=== PATIENT | male | born 1940 | race Caucasian/White ===

== ENCOUNTER 2022-10-24 10:13 | Inpatient (IN) | payer MEDICARE ==
[~2022-10-24] VITALS: Ht 170.2 cm; Wt 97.6 kg
[2022-10-24] VITALS (8 sets, daily range): BP systolic 100–135; BP diastolic 53–80
[~2022-10-24 10:13] MED LIST: COREG25 MG PO; COUMADIN5 MG PO; LASIX20 MG PO; LISINOPRIL20 MG PO; MECLIZINE HCL25 MG PO; SIMVASTATIN40 MG PO; TERAZOSIN HCL5 MG PO; TRANSDERM-SCOP1 EA TD
[2022-10-24] MEDS ORDERED: ALLOPURINOL300 MG PO (10:54)
[2022-10-24] MEDS ORDERED: DIGOXIN250 MCG PO (10:54)
[2022-10-24] MEDS ORDERED: TERAZOSIN HCL2 MG PO (10:56)
[2022-10-24] MEDS ORDERED: SPIRONOLACTONE25 MG PO (10:56)
[2022-10-24] MEDS ORDERED: WARFARIN SODIU2.5 MG PO (10:58)
--- NOTE | 2022-10-24 14:00 | NUR ---
PATIENT ARRIVED TO THE CCU UNIT ROOM 129. PATIENT ABLE TO STAND AND TRANSFER. PATIENT TO BED WITH HIS DAUGHTER MADDY AT THE BEDSIDE. ALL QUESTIONS ANSWERED. PATIENT AND HIS DAUGHTER UPDATED ON PLAN OF CARE.
[2022-10-24] MEDS ORDERED: FUROSEMIDE80 MG PO (15:12)
--- NOTE | 2022-10-24 16:30 | NUR ---
PATIENTS ASSESSMENT COMPLETED. PER REPORT PATIENT HAD MULTIPLE MAROON BOWEL MOVEMNTS IN THE ED AND URINATED ONCE IN THE ER. PATIENT HAS HAD 2 BOWEL MOVEMENTS SINCE BEING IN CCU. PATIENT VITALS REMAIN STABLE. PATIENT CONTINUES TO DENY DIZZINESS. LABS WILL BE RECHECKED AT THIS TIME. PATIENT CONTINUES TO DENY PAIN.
--- NOTE | 2022-10-24 16:35 | NUR ---
PATIENT LABS DRAWN WITH SOME DIFFICULTY. PATIENT WAS UP TO THE CAMMODE AND TOLERATED WELL. NO DIZZINESS. WILL CONTINUE TO CLOSELY MONITOR.
--- NOTE | 2022-10-24 18:39 | NUR ---
PATIENT 1 HOUR NEB IS FINISHED INFUSING. RT AT THE BEDSIDE. PATIENTS HR HAS REMAINED 60-80'S. PATIENT HAS SLEPT THROUGH THE 1 HOUR NEB. NO OTHER NEEDS AT THIS TIME.
--- NOTE | 2022-10-24 19:49 | NUR ---
CALLED AND SPOKE WITH MARIELENA CHAVEZ. PATIENT HAD NOT VOIDED SINCE ER. BLADDER SCANNED FOR 175. PATIENT INITIALLY DENIED THE NEED TO URINATE. PATIENT THEN UP TO THE CAMMODE AND VOIDED AT THIS TIME. NEW ORDERS FOR 2 UNITS PRBC ON HOLD. NEW ORDER FOR CMP TO FOLLOW POTASSIUM LEVELS. PATIENTS FAMILY AT THE BEDSIDE. PATIENT REMAINS NPO. PATIENTS VITALS STABLE.
--- NOTE | 2022-10-24 20:37 | NUR ---
CONTACTED DR. PEGUERO REGARDING K OF 6.8. READBACK ORDER AND DR. PEGUERO CONFIRMED SHE WILL PL[email or web address]
--- NOTE | 2022-10-24 21:11 | NUR ---
CONTACTED HOUSE SUP REGARDING CALCIUM GLUCONATE. SHE WILL MAKE THE DRIP AND BRING IT UP.
[2022-10-25] VITALS (16 sets, daily range): BP systolic 90–134; BP diastolic 50–105
--- NOTE | 2022-10-25 01:29 | NUR ---
PATIENT HAS A REPEAT K OF 6.1. CONTACTED DR. PEGUERO AND WAS GIVEN ORDERS. [facility] REPEAT AT 0600
--- NOTE | 2022-10-25 04:44 | NUR ---
PATIENT IS RESTING IN BED. HE HAS HAD 2 BLOODY BM'S.
--- NOTE | 2022-10-25 07:30 | NUR ---
PATIENT SHIFT REPORT RECIEVED FROM RURAL SERVICE ENGINEER RN. PATIENT IS RESTING IN THE BED AT THIS TIME. PER REPORT PATIENT HAD 4 BLOODY BOWEL MOVEMENTS OVERNOTIGHT. PATIENT HAS EUFEMIA LLIHT AND CALLS APPROPRIATELY.
--- NOTE | 2022-10-25 08:30 | NUR ---
Spoke with pt and he is very pleasant. Pt states he lives in a house with his daughter. 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 He has 3 great grandchildren living in the home ranging from 21/2 to 18. He assist with their care and is upnights with the youngest as his daughter works. He ses a walking stick or a cane. He has other DME available from his late . He denies financial concerns. He sees Dr. Tiwari for cardiology. Pt does not have a pcp and will accept a Dr. from any clinic. He does not want a female Dr. I will contact the physician clinic as they are the only clinic accepting pts at this time in [facility]. Pt plans on dc to home with daughter and great grandchildren. He denies need. I will have a scope today.
--- NOTE | 2022-10-25 09:10 | NUR ---
PATIENT ASSESSMENT COMPLETED. PATIENTS BREATH SOUNDS CLEAR ON RA. PATIENT DENIES SOB. NO COUGHING NOTED. PATIENT DENIESABD PAIN. ACTIVE BOWEL TONES NOTED. NO TENDERNESS. PATIENT CONTINUES TO HAVE MAROON COLORED BOWEL MOVEMENTS. PATIENTS HR IS IRREGULAR ON THE HEART MONITOR. MD PEGUERO AT THE BEDSIDE TO SEE PATIENT AND HOME CARDIA MEDICATIONS WILL BE ORDERED. PATIENT HAS MAGNESIUM INFUSING FOR MAG LEVEL OF 1 ON LABS THIS AM. PATIENT IS ALERT AND TALKATIVE. HE IS VERY PLEASANT AND FOLLOWS DIRECTIONS. PATIENT HAS A CLEAR LIQUID TRAY AT THE BEDSIDE. PATIENT IS NOW AT THE BEDSIDE. WILL UPDATE ON PLAN OF CARE. CALL LIGHT IN REACH.
--- NOTE | 2022-10-25 10:00 | NUR ---
Contacted Taras at the [facility]ician [facility]. I will scan the chart to her. She states she will get a DrPhil assigned today and I let her know, he wants a male PCP.
--- NOTE | 2022-10-25 10:08 | NUR ---
PATIENTS DAUGHTER AT THE [facility]. UPDATED ON PLAN OF CARE.
--- NOTE | 2022-10-25 10:30 | NUR ---
PATIENT CONCERNED ABOUT HOME MEDICATION FOR HIS HEART. PATIENT STARTED ON DIGOXIN AND WILL RECIEVE PO COREG THIS AFTERNOON. PATIENT IS STARTED ON BOWEL PREP AND MD WANTS TO ENSURE PATIENT TOLERATES PREP WELL PRIOR TO RECIEVEING COREG. PATIENTS ELLIOTT WAS UPDATED ON PLAN OF CARE. WILL CONTINUE TO CLOSELY MONITOR. BOWEL PREP PROVIDED TO PATIENT. PATIENT DENIES ANY OTHER NEEDS AT THIS TIME. CALL LIGHT IN REACH.
--- NOTE | 2022-10-25 11:30 | NUR ---
STUDENT RN AND THIS RN IN TO ASSESS PATIENT. PATIENT SITTING AT THE EDGE OF THE BED. PATIENT ASSESSMENT REMAINS UNCHANGED. PATIENT AND STUDENT EMILIANO VISITING AT THIS TIME. CALL LIGHT IN REACH.
--- NOTE | 2022-10-25 13:03 | NUR ---
PATIENT RESTING IN BED ON HIS SIDE. VITALS STABLE. PATIENT CONTINUES TO WAKE UP AND WORK ON BOWEL PREP THIS AFTERNOON.
--- NOTE | 2022-10-25 13:23 | NUR ---
THIS RN IN TO CHECK ON PATIENT AND CLEAN UP CAMMODE. PATIENT RESTING IN BED AND OPENED HIS EYES. PATIENT IS TOERLATING PREP WELL. PATIENTS STOOL IN NOW A HUFF COLOR WITH OCC. SMALL CLOTS NOTED MIXED INTO THE STOOL. PATIENT DENIES ANY OTHER NEEDS AT THIS TIME.
--- NOTE | 2022-10-25 15:00 | NUR ---
PATIENTS FAMILY IN VISITING WITH PATIENT. PATIENT SITTING UP A TTHE EDGE OF THE BED. PATIENT CONTINUES TO DENY DIZZINESS. VITALS STABLE. PATIENTS STOOL CONTINUES TO BE HUFF IN COLOR WITH OCC. SMALL CLOTS NOTED. STOOL IS LIQUID. PATIENT IS STILL WORKING ON DRINKING BOWEL PREP. CALL LIGHT IN REACH.
--- NOTE | 2022-10-25 15:24 | CONS ---
[facility] [address] [place], [place] [address] Signed DATE OF CONSULTATION: 10/24/2022 CONSULTING PHYSICIAN: Shiv Garcia MD. REQUESTING PHYSICIAN: Dr. De Souza. PROBLEM: Hematochezia. HISTORY OF PRESENT ILLNESS: This 82-year-old white man was evaluated through the emergency room for significant hematochezia. Notably he was not particularly anemic with hematocrit of 41. Concurrently, he was noted to have significant hyperkalemia with a potassium greater than 6. The patient has had this bleeding only for today. He does not have routine rectal bleeding. He had no associated hematemesis. He denies any significant abdominal pain with this. Note that he underwent colonoscopy more than 20 years ago in [place]. He has no family history of colon cancer, but is known to have diverticulosis. It is unclear if he has had polyps in the past, he is uncertain. Given his significant hyperkalemia, he has been monitored in the intensive care unit. He has had no adverse arrhythmia or other manifestation of his hyperkalemia. He was treated with Kayexalate, enemas as well as Lasix intravenously administered. He is somewhat thirsty and would like something to drink. SOCIAL HISTORY: He has been for a few years. He has a daughter and several grandchildren living in his home. He lives in [place] off [address] [place] [address] (behind the [facility]). REVIEW OF SYSTEMS: He denies any shortness of breath or chest pain. He has had no dysphagia or dysuria. He denies any hematemesis, but does have blood per rectum. Additionally, the patient is chronically anticoagulated with Coumadin related to atrial fibrillation. He is followed by Dr. Redd, in [place]. The patient has been on Lasix 3 times a week, lisinopril twice daily, and spironolactone, which may contribute to his current problem hyperkalemia. He is considered to have low ejection fraction, CHF. PAST MEDICAL HISTORY: Noted for hypertension, BPH, congestive heart failure with dilated cardiomyopathy, diverticulosis, atrial fibrillation, peripheral arterial disease. Electronically Signed By: SHIV GARCIA MD 10/25/22 1524 PATIENT NAME: TEE GAMEZ CONSULTATION DATE OF : 42 REPORT #: [id number] PHYSICIAN: SHIV GARCIA MD PCP: OTHER PCP REPORT IS CONFIDENTIAL AND NOT TO BE RELEASED WITHOUT AUTHORIZATION [facility] [address] [place], [place] [address] Signed PAST SURGICAL HISTORY: He has had cholecystectomy, tonsillectomy, and a pacemaker with defibrillator implantation. ALLERGIES: He has no known drug allergies. PHYSICAL EXAMINATION: GENERAL: A pleasant white man, who looks to be in no distress at this time. VITAL SIGNS: Height is 5 feet 7 inches, weight is 98.5 kg with a BMI of 34. Temperature is 97, pulse is 79, irregularly irregular, blood pressure 119/67, O2 saturation 99% on room air. HEENT: Trachea is midline. CHEST: Shows normal respiratory excursion without wheeze overtly, nor tachypnea. ABDOMEN: Somewhat obese, but soft throughout. There is no sign of ascites. There is no focal mass or tenderness. EXTREMITIES: Show no clubbing, cyanosis, or edema at this time. LABORATORY DATA: Most recent lab studies show white count of 13.8, hematocrit 39.3, platelets 271,000. Coag studies showed an INR of 3.88 and on admission now 1.31 after Kcentra and vitamin K. His electrolytes continue to show elevated potassium at 6.8 at 20:10, initial potassium 6.6. Creatinine is 1.67, initially 1.41. Liver enzymes are normal. Digoxin level was 1.5. Serology showed no evidence of COVID disease or other viral illness. ASSESSMENT: The patient has had hematochezia, but without significant drop in his hemoglobin or hematocrit. His admission hematocrit was 41.6, now 39.3. Colonoscopy should be undertaken once medically optimized. Right now, his hyperkalemia is problematic and is being addressed by Dr. De Souza, with IV fluids, Lasix, and so on. I think he could have clear liquids (water etc.) for the time being, as he is rather thirsty. We will make him n.p.o. in the morning. Most optimally a colonoscopy would be undertaken at the time after stabilization. His current regimen with Kayexalate, enemas, and other interventions may obviate the need for formal bowel prep, but generally speaking it is most appropriate depending on the level of fecal discharge from his apparent lower gastrointestinal bleeding. We will revisit that issue tomorrow morning once more stability of electrolytes has been accomplished. Electronically Signed By: SHIV GARCIA MD 10/25/22 1524 PATIENT NAME: TEE GAMEZ CONSULTATION DATE OF : 42 REPORT #: [id number] PHYSICIAN: SHIV GARCIA MD PCP: OTHER PCP REPORT IS CONFIDENTIAL AND NOT TO BE RELEASED WITHOUT AUTHORIZATION [facility] [address] [place] [address] Signed MD LAUREN Peñaloza/MODL /[id number] cc: Isaak Tolliver MD Copies: JO DE SOUZA MD ~ Electronically Signed By: SHIV GARCIA MD 10/25/22 1524 PATIENT NAME: TEE GAMEZ CONSULTATION DATE OF : 42 REPORT #: [id number] PHYSICIAN: SHIV GARCIA MD PCP: OTHER PCP REPORT IS CONFIDENTIAL AND NOT TO BE RELEASED WITHOUT AUTHORIZATION
--- NOTE | 2022-10-25 16:30 | NUR ---
PATIENT UP TO THE CAMMODE. PATIENTS FAMILY HAS BEEN IN VISITING. VITAL SIGNS REMAIN STABLE. PATIENT DENIES ANY NEEDS AT THIS TIME. UPDATED PATIENTS FAMILY ON PLAN OF CARE.
--- NOTE | 2022-10-25 18:33 | NUR ---
PATIENT CAMMODE EMPTIED AND CLEANED. PATIENT MEDICATION GIVEN. PATIENT IS DRINKING THE LAST CUP OF HIS BOWEL PREP. PATIENT IS TOLERATING WELL. STOOL CONTINUES TO BE HUFF LIQUID WITH OCC. SMALL CLOTS IN STOOL. PATIENT DENIES ABD PAIN AND DIZZINESS. CALL LIGHT IN REACH. PATIENT DENIES ANY OTHER NEEDS AT THIS TIME. PATIENT HAS BEEN UP AND DOWN TO USE CAMMODE THROUGHTOUT THE DAY. PER MD PEGUERO ONCE PATIENT IS SLOWING DOWN ON GETTING UP SCD'S NEED TO BE PLACED ON PATIENT. PATIENT NPO AT MIDNIGHT.
[2022-10-26] VITALS (10 sets, daily range): BP systolic 99–143; BP diastolic 59–88
--- NOTE | 2022-10-26 05:35 | NUR ---
PATIENT IS RESTING IN BED.
--- NOTE | 2022-10-26 06:11 | NUR ---
CONTACTED DR. PEGUERO REGARDIN MG OF 1.6. NO FURTHER ORDERS GIVEN.
--- NOTE | 2022-10-26 07:31 | EKG ---
[facility] [address] [facility] [place], [place] [address] Signed Atrial fibrillation Nonspecific intraventricular block Abnormal ECG No previous ECGs available Confirmed by JO PEGUERO MD ([id number]) on 10/26/2022 7:30:50 AM Electronically Signed By: JO PEGUERO MD 10/26/22 0731 PATIENT NAME: TEE GAMEZ Electrocardiogram DATE OF : 42 PHYSICIAN: JO PEGUERO MD REPORT #: [id number] REPORT IS CONFIDENTIAL AND NOT TO BE RELEASED WITHOUT AUTHORIZATION
--- NOTE | 2022-10-26 07:45 | NUR ---
IN TO SEE PT AND DO ASSESSMENT. PT IS AWAKE IN BED WATCHING TV, CHEERFUL AND TALKATIVE. DENIES ANY PAIN/NAUSEA/SOB OR WEAKNESS. HR 80'S. LUNGS CLEAR. ALERT AND ORIENTED, DISCUSSED PLAN FOR THE DAY INCLUDING SCOPE WITH DR GARCIA AND NEED FOR NPO. PT AGREEABLE, NO NEEDS AT THIS TIME.
--- NOTE | 2022-10-26 08:10 | NUR ---
CALL FROM DR GARCIA TO CONFIRM PLAN FOR SCOPE THIS AM AT 1000.
--- NOTE | 2022-10-26 08:57 | NUR ---
DR PEGUERO IN TO ROUND ON PT
--- NOTE | 2022-10-26 09:44 | NUR ---
PT LEFT TO OR WITH PACU NURSES.
--- NOTE | 2022-10-26 11:01 | NUR ---
10/26/22 [address] [address]: PATIENT AWAKENED WITH VOICE. DENIES PAIN. FLIGHT TEST DATA ACQUISITION TECHNICIAN AT BEDSIDE. 1048: PATIENT TRANSFERRED BACK TO CCU ROOM 129. PATIENT TOLERATED TRANSFER WELL. PATIENT WALKED FROM STRETCHER TO CCU BED. REPORT GIVEN CCU RN.
--- NOTE | 2022-10-26 11:39 | NUR ---
MED REC COMPLETE
--- NOTE | 2022-10-26 12:41 | NUR ---
PT SITTING UP IN BED, TALKATIVE, NO C/O OF THIS TIME.
--- NOTE | 2022-10-26 16:20 | NUR ---
PT ARRIVED TO UNIT FROM CCU VIA CHAIR. PT IS A/O, RESPIRATIONS EVEN AND REGULAR. PT DENIES NEEDS/COMPLAINTS ATT. CALL LIGHT WITHIN REACH.
--- NOTE | 2022-10-26 17:51 | NUR ---
PT VS AND I/O'S COMPLETED. PT IS LAYING DOWN IN BED. A/O, RESPIRATIONS EVEN AND REGULAR. CALL LIGHT WITHIN REACH.
--- NOTE | 2022-10-26 19:23 | NUR ---
shift report received from dayshift stephane shah at bedside, pt awake and resting in bed. on ra, rr even and unlabored. no distress noted. call light in reach.
--- NOTE | 2022-10-26 21:15 | NUR ---
ROUNDED ON pt, pt AWAKE AND RESTING IN BED WATCHING TV. DENEIS NEEDS OR CONCERNS. CALL LIGHT IN REACH. ON RA, RR EVEN AND UNLABORED.
--- NOTE | 2022-10-26 22:19 | NUR ---
ASSESSMENT COMPLETE, SCHEDULED MEDS GIVEN-VS REMAINS WNL. pt DENEIS NAUSEA AND PAIN. pt VERY INTERACTIVE WITH STAFF AND POLITE. IV SITES X2 WNL. EMPTIED URINAL AND CALL LIGHT IN REACH. pt INDEPENDENT IN ROOM, STEADY ON FEET. NO NEEDS OR CONCERNS VERBALIZED, FRESH WATER PROVIDED.
--- NOTE | 2022-10-27 00:06 | NUR ---
pt RESTING IN BED WITH EYES CLOSED, ON RA. RR EVEN AND UNLABORED. NO DISTRESS NOTED.
[2022-10-27 02:05] VITALS: BP 120/59
--- NOTE | 2022-10-27 02:11 | NUR ---
vss, pt awoke to voice. no acute changes to assessment. tele remains in place, afib. call light in reach.
--- NOTE | 2022-10-27 05:37 | NUR ---
REQUESTED AND RECEIVED CUP COFFEE. NO OTHER NEEDS. PT SITTING ON EDGE OF BED.
[2022-10-27 05:45] VITALS: BP 125/68
--- NOTE | 2022-10-27 05:50 | NUR ---
chair post machine operator in room collecting vs, no needs or concerns verbalized. call light in reach. pt remains on ra, rr even and unlabored.
--- NOTE | 2022-10-27 05:57 | NUR ---
urinal emptied, 600mls output. daughter tammi called and asked for update, questions answered. no additional needs or concerns. call light in reach.
--- NOTE | 2022-10-27 07:40 | NUR ---
RECEIVED REPORT FROM NOC NURSE. PT IS A/O, RESPIRATIONS EVEN AND REGULAR. DENIES NEEDS/COMPLAINTS ATT.
[2022-10-27 08:49] VITALS: BP 163/100
--- NOTE | 2022-10-27 08:58 | NUR ---
PT ASSESSMENT AND MEDICATION ADMINISTRATION COMPLETED. PT REQUESTED ONE IV TO BE REMOVED. WILLING TO KEEP ONE FOR IV MAG REPLACEMENT. BP ELEVATED 163/100, REFUSES RECHECK. STATES HE IS VERY WORKED UP ABOUT WAITING TO BE DISCHARGED. RECEIVED BP MEDICATIONS. CALL LIGHT WITHIN REACH.
[2022-10-27 10:34] VITALS: BP 152/99
--- NOTE | 2022-10-27 13:02 | OR ---
[facility] [address] [place], [place] [address] Signed DATE OF OPERATION: 10/26/2022 SURGEON: Shiv Garcia MD PREOPERATIVE DIAGNOSES: 1. Recent hematochezia and coagulopathy (warfarin related). 2. Multiple medical problems including atrial fibrillation, congestive heart failure and cardiomyopathy. POSTOPERATIVE DIAGNOSES: 1. Extensive diverticulosis of sigmoid and more proximal colon. No evidence of active blood or bleeding. 2. Polyp at rectosigmoid colon (excised). 3. Hiatal hernia and possible mild gastritis. PROCEDURES: 1. Total colonoscopy to cecum with cold snare polypectomy x1. 2. Upper endoscopy with biopsy of proximal stomach. ANESTHESIA: Aris Kowalski CRNA INDICATIONS: This 82-year-old white man was admitted by Dr. De Souza on October 24, 2022 with significant hematochezia and hematocrit noted to be 27. He has been chronically anticoagulated with Coumadin for chronic atrial fibrillation. He has numerous cardiovascular comorbidities. He has been reversed on his anticoagulation and at this point, hematochezia has ceased. He has undergone a bowel prep yesterday. He is admitted to undergo colonoscopy to better characterize the source of his hematochezia and if no findings entirely accounting for the process, upper endoscopy as well. He understands the risks of bleeding, infection, and perforation and wished to proceed. FINDINGS: Colonoscopy showed a perfectly prepped colon. Complete colonoscopy was undertaken to the cecum without question. There were numerous large diverticula of the sigmoid and left colon and scattered diverticula more proximally. There was an adenomatous polyp at the rectosigmoid which was excised with cold snare technique. On the basis of those findings without signs of active bleeding, he did undergo upper endoscopy. This showed only a hiatal hernia and mild proximal gastritis but no sign of Electronically Signed By: SHIV GARCIA MD 10/27/22 1302 PATIENT NAME: TEE GAMEZ OPERATIVE REPORT DATE OF : 42 REPORT #: [id number] PHYSICIAN: SHIV GARCIA MD PCP: OTHER PCP REPORT IS CONFIDENTIAL AND NOT TO BE RELEASED WITHOUT AUTHORIZATION [facility] [address] [place], [place] [address] Signed ulcer or neoplasm. DESCRIPTION OF PROCEDURE: The patient was brought to the endoscopy suite and placed in the lateral decubitus position and given intravenous sedation with propofol infusional technique. Digital rectal examination was performed which was normal. An Olympus video colonoscope was passed in the rectum and manipulated throughout the colon noting numerous diverticula of the sigmoid and more proximally as well. The scope was ultimately advanced to the cecum. The ileocecal valve and appendiceal orifice were noted to be normal. There was no sign of blood in the GI tract. No sign of inflammation, ischemic colitis, or other finding that would account for hematochezia, only diverticulosis. The scope was withdrawn from the cecum and examination throughout showed diverticulitis noted and at the rectosigmoid, an adenomatous polyp which was reasonably small. This was excised with cold snare polypectomy technique. The rectum was otherwise normal. On that basis, upper endoscopy was considered appropriate. The Olympus video upper endoscope was passed into the hypopharynx after placement of a bite block. Vocal cords appeared normal. Scope was advanced to the esophagus, throughout its length it was normal. Scope was advanced to the stomach, which was insufflated with air. There was no sign of blood or other abnormality at that point. Rugal folds were normal. Antrum was normal as was the pylorus. The scope was passed through the pylorus into the duodenum, which was also normal. Scope was withdrawn and retroflexed view undertaken showing proximal gastritis but no sign of ulceration or any sign of recent bleeding. Hiatal hernia was also noted. Biopsies were obtained in the proximal stomach for both JESSIE and pathologic testing. The scope was then withdrawn to the esophagus. The remaining esophagus appeared normal. The patient was taken to the recovery room in good condition. CONCLUDING DIAGNOSIS: Most likely GI bleeding related to diverticulosis in the setting of anticoagulation. PLAN: He will return to the care of Dr. De Souza and I would recommend advancement of his diet. He may benefit from PPI medication, particularly if he will be returning to anticoagulation regimen. Shiv Garcia MD Electronically Signed By: SHIV GARCIA MD 10/27/22 1302 PATIENT NAME: TEE GAMEZ OPERATIVE REPORT DATE OF : 42 REPORT #: [id number] PHYSICIAN: SHIV GARCIA MD PCP: OTHER PCP REPORT IS CONFIDENTIAL AND NOT TO BE RELEASED WITHOUT AUTHORIZATION [facility] [address] [facility] [place], [place] [address] Signed /MODL /[id number] cc: Dr. Tramaine De Souza MD Copies: JO DE SOUZA MD ~ Electronically Signed By: SHIV GARCIA MD 10/27/22 1302 PATIENT NAME: TEE GAMEZ OPERATIVE REPORT DATE OF : 42 REPORT #: [id number] PHYSICIAN: SHIV GARCIA MD PCP: OTHER PCP REPORT IS CONFIDENTIAL AND NOT TO BE RELEASED WITHOUT AUTHORIZATION
== END 2022-10-27 11:00 | disposition home or self-care (01) | DRG 378 ==
LOC: ED 10:13 → CCU 12:42 → MS 10-26 16:21
PROVIDERS: Surgery; ADMIT Internal Medicine; ATTEND Internal Medicine
PROC: 30283B1 Transfusion of Nonautologous 4-Factor Prothrombin Complex Concentrate into Vein, Percutaneous Approach (ICD-10-PCS; principal; 2022-10-24)
PROC: 0DB68ZX Excision of Stomach, Via Natural or Artificial Opening Endoscopic, Diagnostic (ICD-10-PCS; 2022-10-26)
PROC: 0DBN8ZX Excision of Sigmoid Colon, Via Natural or Artificial Opening Endoscopic, Diagnostic (ICD-10-PCS; 2022-10-26 09:51)
DX: K57.31 Diverticulosis of large intestine without perforation or abscess with bleeding (principal); D62 Acute posthemorrhagic anemia; I42.0 Dilated cardiomyopathy; I48.20 Chronic atrial fibrillation, unspecified; D68.9 Coagulation defect, unspecified; Z20.822 Contact with and (suspected) exposure to COVID-19; K29.50 Unspecified chronic gastritis without bleeding; K44.9 Diaphragmatic hernia without obstruction or gangrene; I10 Essential (primary) hypertension; E87.5 Hyperkalemia; E83.42 Hypomagnesemia; I11.0 Hypertensive heart disease with heart failure; I50.9 Heart failure, unspecified; N40.0 Benign prostatic hyperplasia without lower urinary tract symptoms; I73.9 Peripheral vascular disease, unspecified; Z90.49 Acquired absence of other specified parts of digestive tract; Z90.89 Acquired absence of other organs; Z95.810 Presence of automatic (implantable) cardiac defibrillator; Z79.01 Long term (current) use of anticoagulants; Z79.899 Other long term (current) drug therapy
CPT/HCPCS: 00813; 36415; 80048; 80053; 80162; 83735; 85025; 85610; 85730; 86850; 86900; 86901; 87502; 93005; 93010; 94644; 96365; 96375; 99285-25; C9113; C9803; J1940; J2405; J3430; J3475; J7121; J7168; U0003

== ENCOUNTER 2023-09-30 14:55 | Emergency (ER) | payer MEDICARE ==
[~2023-09-30] VITALS: Ht 170.2 cm; Wt 100.5 kg
[~2023-09-30 14:55] MED LIST changes: +ALLOPURINOL300 MG PO; +DIGOXIN250 MCG PO; +FUROSEMIDE80 MG PO; +SPIRONOLACTONE25 MG PO; +TERAZOSIN HCL2 MG PO; +WARFARIN SODIU2.5 MG PO
[2023-09-30 15:15] LABS: BASOPHILS 0.8 % (0-2); EOSINOPHILS 1.8 % (0-6); HEMATOCRIT 43.6 % (35.0-50.0); HEMOGLOBIN 14.3 g/dL (12.0-18.0); LYMPHOCYTES 13.5 % (24-44); MCH 30.3 (27-36); MCHC 32.8 g/dl (30-36); MCV 92.6 fl (81-99); MONOCYTES 9.3 % (0-12); NEUTROPHILS 74.6 % (39-80); PLATELET COUNT 189 K/uL (140-440); RBC 4.71 M/ul (4.3-5.7); RDW 16.9 (10.5-15.0)
[2023-09-30 15:31] LABS: ALBUMIN 3.6 g/dL (3.4-5.0); ALCOHOL, MEDICAL <3 ng/dL (<3); ALKALINE PHOSPHATASE 75 U/L (46-116); ALT (SGPT) 25 U/L (14-59); ANION GAP 14.1 (7-21); AST (SGOT) 23 U/L (15-37); BILIRUBIN, TOTAL 1.1 ng/dL (0.2-1.0); BUN/CREATININE RATIO 21.42 (6.0-28.6); CALCIUM 8.2 mg/dL (8.5-10.1); CARBON DIOXIDE 24 mmol/L (21-32); CHLORIDE 105 mmol/L (98-107); CREATININE, SERUM 1.12 mg/dL (0.70-1.30); GLOMERULAR FILTRATION RATE,EST 66 mL/min (>60); POTASSIUM 4.1 mmol/L (3.5-5.1); PROTEIN, TOTAL 7.2 g/dL (6.4-8.2); UREA NITROGEN 24 mg/dL (7-18)
[2023-09-30 15:51] LABS: ABO A; ANTIBODY SCREEN NEGATIVE; RH POSITIVE
[2023-09-30] MEDS ORDERED: DIPHTH,PERTUSS(ACELL),TET VAC 0.5 ML SYRINGE IM ONE (16:30)
[2023-09-30 17:34] VITALS: BP 149/107
== END 2023-09-30 17:30 | disposition home or self-care (01) ==
LOC: ED 14:55
PROVIDERS: Emergency Medicine
DX: S01.01XA Laceration without foreign body of scalp, initial encounter (principal); W17.89XA Other fall from one level to another, initial encounter; I11.0 Hypertensive heart disease with heart failure; I50.9 Heart failure, unspecified; E78.5 Hyperlipidemia, unspecified; I48.91 Unspecified atrial fibrillation; Z79.01 Long term (current) use of anticoagulants; Z79.899 Other long term (current) drug therapy
CPT/HCPCS: 12001; 36415; 70450; 72125; 80053; 80307; 85025; 86850; 86900; 86901; 90471; 90715; 99284-25; G0480